=== PATIENT | female | born 1960 | race Caucasian/White ===

== ENCOUNTER 2021-02-23 07:24 | Day surgery (SDC) | payer OTHER, SELFPAY ==
[~2021-02-23] VITALS: Ht 152.4 cm; Wt 68.9 kg
== END 2021-02-23 08:40 | disposition home or self-care (01) ==
LOC: MDS 07:24 → MMU 07:25 → MDS 08:40
PROVIDERS: ATTEND Internal Medicine Gastroenterology
DX: K76.6 Portal hypertension (principal); Z20.822 Contact with and (suspected) exposure to COVID-19; Z53.8 Procedure and treatment not carried out for other reasons
CPT/HCPCS: U0003